=== PATIENT | male | born 1965 | race Caucasian/White ===

== ENCOUNTER 2021-12-25 16:43 | Emergency (ER) | payer MEDICAID ==
[~2021-12-25] VITALS: Ht 182.9 cm; Wt 87.0 kg
[~2021-12-25 16:43] MED LIST: AMLO5TAB88 MT; MED4 MT; TRAM50TA94 MT
[2021-12-25] MEDS ORDERED: IBUPROFEN 600MG TABLET PO STA (17:07)
[2021-12-25 18:16] LABS: HEMATOCRIT. 29.2 % (42.0-52.0); HEMOGLOBIN. 9.4 g/dL (14.0-18.0); MEAN CORPUSCULAR HEMOGLOBIN 27.5 pg (28.0-32.0); MEAN CORPUSCULAR VOLUME 84.9 fL (80.0-94.0); MEAN PLATELET VOLUME 8.8 fl (7.4-10.4); PLATELET 345 x1000/uL (130-400); RED BLOOD CELL COUNT 3.44 mill/uL (4.7-6.1); RED CELL DISTRIBUTION WIDTH 18.1 % (11.6-14.6)
[2021-12-25 18:24] LABS: CHLORIDE 112 mEq/L (98-107)
[2021-12-25 18:28] LABS: ETHANOL BLOOD < 10 mg/dL
[2021-12-25 18:38] LABS: PLATELET ESTIMATE NORMAL
[2021-12-25] MEDS ORDERED: IBUPROFEN 600MG TABLET PO NR (20:30)
[2021-12-25 20:31] VITALS: BP 132/84
[2021-12-25] MEDS ORDERED: IBUP-2028 MT (20:53)
== END 2021-12-25 21:03 | disposition home or self-care (01) ==
LOC: ER 16:43
DX: M79.18 Myalgia, other site (principal); R53.1 Weakness; F15.10 Other stimulant abuse, uncomplicated
CPT/HCPCS: 36415; 80053; 80307; 80320; 80329; 85025; 99283; G0480

== ENCOUNTER 2022-10-23 20:54 | Emergency (ER) | payer MEDICAID, OTHER ==
[~2022-10-23] VITALS: Ht 172.7 cm; Wt 87.0 kg
[~2022-10-23 20:54] MED LIST changes: +IBUP-2028 MT
[2022-10-23 23:44] LABS: CHLORIDE 117 mEq/L (98-107)
[2022-10-23 23:58] LABS: HEMATOCRIT. 24.5 % (42.0-52.0); MEAN CORPUSCULAR HEMOGLOBIN 30.2 pg (28.0-32.0); MEAN CORPUSCULAR VOLUME 92.7 fL (80.0-94.0); MEAN PLATELET VOLUME 8.8 fl (7.4-10.4); PLATELET 391 x1000/uL (130-400); RED BLOOD CELL COUNT 2.64 mill/uL (4.7-6.1); RED CELL DISTRIBUTION WIDTH 16.8 % (11.6-14.6)
[2022-10-24 00:33] LABS: PLATELET ESTIMATE NORMAL
[2022-10-24 00:43] LABS: ETHANOL BLOOD < 10 mg/dL
[2022-10-24 04:57] VITALS: BP 154/100
== END 2022-10-24 05:04 | disposition short-term general hospital (02) ==
LOC: ER 20:54
DX: R07.9 Chest pain, unspecified (principal); I20.0 Unstable angina; D64.9 Anemia, unspecified; I50.9 Heart failure, unspecified; Z98.890 Other specified postprocedural states; Z20.822 Contact with and (suspected) exposure to COVID-19
CPT/HCPCS: 36415; 71045; 80053; 80320; 83880; 84484; 85025; 87426; 93005; 99285; C9803; Z7610; G0480

== ENCOUNTER 2023-07-19 14:01 | Emergency (ER) | payer OTHER ==
[~2023-07-19] VITALS: Ht 180.3 cm; Wt 75.0 kg
[2023-07-19 14:07] VITALS: BP 132/84; PULSE 92; RESP 14; TEMP 98.9; O2SAT 98
[2023-07-19] MEDS ORDERED: NALO4SPR BOTHNSTRLS (19:27)
== END 2023-07-19 22:04 | disposition home or self-care (01) ==
LOC: ER 14:01
DX: T40.2X1A Poisoning by other opioids, accidental (unintentional), initial encounter (principal); F15.10 Other stimulant abuse, uncomplicated; F11.10 Opioid abuse, uncomplicated; I11.0 Hypertensive heart disease with heart failure; I50.9 Heart failure, unspecified; Z98.890 Other specified postprocedural states; Z86.59 Personal history of other mental and behavioral disorders; Y92.9 Unspecified place or not applicable
CPT/HCPCS: 99283

== ENCOUNTER 2023-10-29 18:56 | Inpatient (IN) | payer OTHER ==
[~2023-10-29] VITALS: Ht 182.9 cm; Wt 88.5 kg
[~2023-10-29 18:56] MED LIST changes: +NALO4SPR BOTHNSTRLS
[2023-10-29 18:57] VITALS: O2SAT 95
[2023-10-29 21:32] LABS: HEMOGLOBIN. 10.4 g/dL (14.0-18.0); MEAN CORPUSCULAR HEMOGLOBIN 29.6 pg (28.0-32.0); MEAN CORPUSCULAR HGB CONC 32.6 g/dL (31.0-37.0); MEAN CORPUSCULAR VOLUME 90.8 fL (80.0-94.0); MEAN PLATELET VOLUME 10.1 fl (7.4-10.4); PLATELET 240 x1000/uL (130-400); RED BLOOD CELL COUNT 3.52 mill/uL (4.7-6.1); RED CELL DISTRIBUTION WIDTH 19.4 % (11.6-14.6); WHITE BLOOD COUNT 8.2 x1000/uL (4.5-11.0)
[2023-10-29 21:34] LABS: DIFFERENTIAL COMMENT 1
[2023-10-29 21:39] LABS: INR 1.1; PROTHROMBIN TIME 11.9 sec (9.6-11.0)
[2023-10-29 21:44] LABS: ALANINE AMINOTRANSFERASE 68 IU/L (10-49); ALBUMIN 3.4 g/dL (3.2-4.8); ASPARTATE AMINOTRANSFERASE 93 IU/L (<34); BILIRUBIN TOTAL 0.3 mg/dL (0.1-1.0); CALCIUM 9.4 mg/dL (8.7-10.4); CARBON DIOXIDE 22 mEq/L (21-32); CHLORIDE 110 mEq/L (98-107); CREATININE 0.9 mg/dL (0.6-1.3); GLUCOSE 90 mg/dL (70-105); POTASSIUM 4.3 mEq/L (3.5-5.1); PROTEIN TOTAL 7.8 g/dL (6.0-8.3); SODIUM 137 mEq/L (136-145); UREA NITROGEN BLOOD 20 mg/dL (9-23)
[2023-10-29 21:47] LABS: ETHANOL BLOOD < 10 mg/dL (<10); TROPONIN I HIGH SENSITIVITY 3723 ng/L (3.0-53)
[2023-10-29 22:12] LABS: ANISOCYTOSIS 1+; PLATELET ESTIMATE NORMAL
[2023-10-29 22:27] LABS: CREATINE KINASE 208 IU/L (46-171)
[2023-10-29] MEDS ORDERED: HEPARIN 5000 UNITS/ML VIAL IV PRN ×2 (22:30)
[2023-10-29] MEDS ORDERED: HEPARIN 25,000 UNITS PREMIX 250 ML IV PRN (22:30)
[2023-10-29] MEDS ORDERED: HEPARIN BOLUS PRN aPTT <30 IV (23:45)
[2023-10-29] MEDS ORDERED: HEPARIN BOLUS PRN aPTT 30-44 IV (23:45)
[2023-10-29] MEDS: ASPIRIN 81MG TABLET PO ONE (23:47)
[2023-10-29 23:49] LABS: TROPONIN I HIGH SENSITIVITY 3462 ng/L (3.0-53)
[2023-10-30] VITALS (7 sets, daily range): BP systolic 107–136; BP diastolic 54–89; PULSE 55–69; RESP 18–20; TEMP 97.4–98.1
[2023-10-30] MEDS: HEPARIN 5000 UNITS/ML VIAL IV SCH (00:15)
[2023-10-30] MEDS: HEPARIN 60 UNITS/KG BOLUS IV NR (00:36)
[2023-10-30] MEDS: HEPARIN 25,000 UNITS PREMIX 250 ML IV SCH (00:42)
[2023-10-30] MEDS: HEPARIN BOLUS PRN aPTT 30-44 IV (00:43)
[2023-10-30] MEDS: HEPARIN BOLUS PRN aPTT <30 IV (00:44)
[2023-10-30] MEDS ORDERED: HEPARIN 25,000 UNITS PREMIX 250 ML IV SCH (01:45)
[2023-10-30] MEDS: ASPIRIN 81MG TABLET PO SCH (09:08)
[2023-10-30] MEDS: ISOSORBIDE MONONITRATE 60MG TABLET SR 24HR PO SCH (09:09)
[2023-10-30] MEDS: METOPROLOL TARTRATE 50MG TABLET PO SCH (09:09)
[2023-10-30 09:41] LABS: BASOPHILS % 1.6 % (0.0-2.0); EOSINOPHILS % 9.4 % (0.0-5.0); HEMATOCRIT. 28.3 % (42.0-52.0); HEMOGLOBIN. 9.4 g/dL (14.0-18.0); LYMPHOCYTES % 40.8 % (20.0-50.0); MEAN CORPUSCULAR HEMOGLOBIN 29.5 pg (28.0-32.0); MEAN CORPUSCULAR HGB CONC 33.3 g/dL (31.0-37.0); MEAN CORPUSCULAR VOLUME 88.6 fL (80.0-94.0); MEAN PLATELET VOLUME 10.3 fl (7.4-10.4); MONOCYTES % 14.9 % (2.0-8.0); NEUTROPHILS % 33.3 % (40.0-76.0); PLATELET 231 x1000/uL (130-400); RED CELL DISTRIBUTION WIDTH 19.2 % (11.6-14.6); WHITE BLOOD COUNT 7.8 x1000/uL (4.5-11.0)
[2023-10-30 10:12] LABS: CALCIUM 8.6 mg/dL (8.7-10.4); CARBON DIOXIDE 23 mEq/L (21-32); CHLORIDE 109 mEq/L (98-107); CHOLESTEROL 94 mg/dL (<200); CREATININE 0.8 mg/dL (0.6-1.3); GLUCOSE 116 mg/dL (70-105); HDL CHOLESTEROL 48 mg/dL (>55); LDL CHOLESTEROL 43 mg/dL (5-100); POTASSIUM 3.7 mEq/L (3.5-5.1); SODIUM 138 mEq/L (136-145); TRIGLYCERIDE 28 mg/dL (0-150); UREA NITROGEN BLOOD 17 mg/dL (9-23)
[2023-10-30 10:26] LABS: TROPONIN I HIGH SENSITIVITY 3383 ng/L (3.0-53)
[2023-10-30 19:08] LABS: *AMPHETAMINES SCREEN URINE NEGATIVE (NEGATIVE); *BARBITURATES SCREEN URINE NEGATIVE (NEGATIVE); *BENZODIAZEPINES SCREEN URINE NEGATIVE (NEGATIVE); *COCAINE SCREEN URINE NEGATIVE (NEGATIVE); CANNABINOID URINE SCREEN NEGATIVE (NEGATIVE); ECSTASY MDMA SCREEN URINE NEGATIVE (NEGATIVE); METHADONE URINE SCREEN Neg (NEGATIVE); OPIATES URINE SCREEN NEGATIVE (NEGATIVE); PHENCYCLIDINE URINE SCREEN NEGATIVE (NEGATIVE)
[2023-10-30] MEDS: HYDROCODONE/ACETAMINOPHEN 10/325MG TABLET PO PRN (19:38)
[2023-10-30] MEDS: ATORVASTATIN CALCIUM 40MG TABLET PO SCH (20:16)
[2023-10-30] MEDS ORDERED: NALOXONE HCL 0.4MG/ML VIAL IV PRN (23:00)
[2023-10-31] VITALS: BP 105/61; PULSE 55; RESP 19; TEMP 97.8
[2023-10-31 04:00] VITALS: BP 105/49; PULSE 51; RESP 19; TEMP 98.4
[2023-10-31 08:00] VITALS: BP 110/51; PULSE 65; RESP 18; TEMP 97
[2023-10-31] MEDS: SODIUM CHLORIDE 0.9% 500 ML IV ONE (13:17)
[2023-10-31] MEDS: ACETAMINOPHEN 325MG TABLET PO PRN (13:31)
[2023-10-31 16:00] VITALS: BP 96/56; PULSE 51; RESP 18; TEMP 96.9
[2023-10-31 20:00] VITALS: BP 100/47; PULSE 54; RESP 19; TEMP 97.7
[2023-11-01] VITALS (7 sets, daily range): BP systolic 100–138; BP diastolic 48–78; PULSE 54–72; RESP 16–20; TEMP 97.2–98
[2023-11-01 08:02] LABS: HEMATOCRIT 28.4 % (42.0-52.0); HEMOGLOBIN 9.5 g/dL (14.0-18.0); MEAN CORPUSCULAR HEMOGLOBIN 29.7 pg (28.0-32.0); MEAN CORPUSCULAR HGB CONC 33.3 g/dL (31.0-37.0); PLATELET 243 x1000/uL (130-400); RED BLOOD CELL COUNT 3.19 mill/uL (4.7-6.1); RED CELL DISTRIBUTION WIDTH 19.2 % (11.6-14.6); WHITE BLOOD COUNT 8.5 x1000/uL (4.5-11.0)
[2023-11-01 08:14] LABS: CALCIUM 8.7 mg/dL (8.7-10.4); CARBON DIOXIDE 22 mEq/L (21-32); CHLORIDE 110 mEq/L (98-107); CREATININE 0.8 mg/dL (0.6-1.3); GLUCOSE 86 mg/dL (70-105); POTASSIUM 4.3 mEq/L (3.5-5.1); SODIUM 138 mEq/L (136-145); UREA NITROGEN BLOOD 15 mg/dL (9-23)
[2023-11-01] MEDS: CLOPIDOGREL 75MG TABLET PO SCH (13:14)
[2023-11-01] MEDS ORDERED: ASPI-1406 MT (13:54)
[2023-11-02] VITALS: BP 133/79; PULSE 79; RESP 19; TEMP 97.7
[2023-11-02 04:00] VITALS: BP 130/84; PULSE 61; RESP 19; TEMP 97.7
[2023-11-02 06:37] LABS: CALCIUM 8.9 mg/dL (8.7-10.4); CARBON DIOXIDE 22 mEq/L (21-32); CHLORIDE 109 mEq/L (98-107); CREATININE 0.8 mg/dL (0.6-1.3); GLUCOSE 84 mg/dL (70-105); HEMATOCRIT 29.3 % (42.0-52.0); HEMOGLOBIN 9.9 g/dL (14.0-18.0); MEAN CORPUSCULAR HEMOGLOBIN 29.8 pg (28.0-32.0); MEAN CORPUSCULAR HGB CONC 33.7 g/dL (31.0-37.0); MEAN CORPUSCULAR VOLUME 88.2 fL (80.0-94.0); PLATELET 225 x1000/uL (130-400); POTASSIUM 4.1 mEq/L (3.5-5.1); RED BLOOD CELL COUNT 3.32 mill/uL (4.7-6.1); RED CELL DISTRIBUTION WIDTH 19.2 % (11.6-14.6); SODIUM 138 mEq/L (136-145); UREA NITROGEN BLOOD 16 mg/dL (9-23); WHITE BLOOD COUNT 7.4 x1000/uL (4.5-11.0)
[2023-11-02 08:00] VITALS: BP 130/60; PULSE 59; RESP 19; TEMP 97.9
[2023-11-02 11:17] VITALS: BP 128/69; PULSE 70; TEMP 97.7
[2023-11-02 12:00] VITALS: BP 128/69; PULSE 70; RESP 19; TEMP 97.7
== END 2023-11-02 14:20 | disposition home or self-care (01) | DRG 190 ==
LOC: ER 18:56 → 7WST 22:31
PROVIDERS: ADMIT Internal Medicine; ATTEND Internal Medicine
DX: I21.4 Non-ST elevation (NSTEMI) myocardial infarction (principal); I11.0 Hypertensive heart disease with heart failure; I50.32 Chronic diastolic (congestive) heart failure; Z20.822 Contact with and (suspected) exposure to COVID-19; F15.10 Other stimulant abuse, uncomplicated; F17.210 Nicotine dependence, cigarettes, uncomplicated; Z79.82 Long term (current) use of aspirin; Z79.899 Other long term (current) drug therapy; Z90.81 Acquired absence of spleen; Z91.148 Patient's other noncompliance with medication regimen for other reason
CPT/HCPCS: 36415; 71045; 80048; 80053; 80061; 80305; 80320; 82550; 83036; 83880; 84484; 85025; 85027; 87426; 93005; 93306; 99291; C1893; J1644; G0480